=== PATIENT | female | born 1980 | race Caucasian/White ===

== ENCOUNTER 2023-08-21 16:41 | Emergency (ER) | payer SELFPAY ==
[~2023-08-21] VITALS: Ht 154.9 cm; Wt 81.6 kg
[2023-08-21 17:17] VITALS: O2SAT 96
[2023-08-21 17:33] LABS: CLARITY URINE CLOUDY (CLEAR); COLOR URINE ORANGE (YELLOW); GLUCOSE URINE NEGATIVE (NEGATIVE); KETONES URINE NEGATIVE (NEGATIVE); LEUKOCYTE ESTERASE URINE 2+ (NEGATIVE); NITRITE URINE POSITIVE (NEGATIVE); OCCULT BLOOD URINE 1+ (NEGATIVE); PH URINE 5.5 (4.5-8.0); PROTEIN URINE 1+ (NEGATIVE); SPECIFIC GRAVITY URINE 1.017 (1.005-1.030)
[2023-08-21 17:52] LABS: SQUAMOUS EPITHELIAL CELL URINE 2+ /lpf (RARE/1+)
[2023-08-21 17:54] LABS: BACTERIA URINE 1+
[2023-08-21] MEDS ORDERED: CEPHALEXIN 250MG CAPSULE PO NR (18:00)
[2023-08-21] MEDS ORDERED: SULF1TAB48 MT (18:11)
[2023-08-21] MEDS ORDERED: HYDROCODONE/ACETAMINOPHEN 5/325MG TABLET PO ONE (18:15)
[2023-08-21 18:48] VITALS: BP 147/91
[2023-08-21 19:19] VITALS: PULSE 110; RESP 14; TEMP 98.5
== END 2023-08-21 19:25 | disposition home or self-care (01) ==
LOC: ER 16:41
DX: N39.0 Urinary tract infection, site not specified (principal); R10.9 Unspecified abdominal pain; F19.90 Other psychoactive substance use, unspecified, uncomplicated
CPT/HCPCS: 81003; 81025; 99283